=== PATIENT | male | born 1935 | race Caucasian/White ===

== ENCOUNTER 2019-02-15 15:41 | Inpatient (IN) | payer OTHER ==
[~2019-02-15] VITALS: Ht 167.6 cm; Wt 82.6 kg
== END 2019-02-16 10:47 | disposition expired | DRG 64 ==
LOC: 3NW 15:41
PROVIDERS: ADMIT Internal Medicine; ATTEND Internal Medicine
DX: I63.81 Other cerebral infarction due to occlusion or stenosis of small artery (principal); J69.0 Pneumonitis due to inhalation of food and vomit; G93.41 Metabolic encephalopathy; J96.00 Acute respiratory failure, unspecified whether with hypoxia or hypercapnia; F10.239 Alcohol dependence with withdrawal, unspecified; Z99.11 Dependence on respirator [ventilator] status; I10 Essential (primary) hypertension; I25.10 Atherosclerotic heart disease of native coronary artery without angina pectoris; I65.21 Occlusion and stenosis of right carotid artery; I73.9 Peripheral vascular disease, unspecified; N40.0 Benign prostatic hyperplasia without lower urinary tract symptoms; R56.9 Unspecified convulsions; Z66 Do not resuscitate; Z51.5 Encounter for palliative care
CPT/HCPCS: G0378; J2270; J2060